=== PATIENT | female | born 1975 | race Caucasian/White ===

== ENCOUNTER → 2024-02-16 19:16 | Outpatient (REF) | payer OTHER, SELFPAY | LOC: WDC 19:16 | PROVIDERS: ATTENDING PHYSICIAN Family Medicine | DX: Z12.31 Encounter for screening mammogram for malignant neoplasm of breast (principal) | CPT/HCPCS: 77063; 77067 ==

== ENCOUNTER → 2024-02-23 08:47 | Outpatient (REF) | payer OTHER, SELFPAY | LOC: WDC 08:47 | PROVIDERS: ATTENDING PHYSICIAN Family Medicine | DX: R92.8 Other abnormal and inconclusive findings on diagnostic imaging of breast (principal) | CPT/HCPCS: 76642 ==

== ENCOUNTER → 2025-02-20 17:41 | Outpatient (REF) | payer OTHER, SELFPAY | LOC: WDC 17:41 | PROVIDERS: ATTENDING PHYSICIAN Family Medicine | DX: Z12.31 Encounter for screening mammogram for malignant neoplasm of breast (principal) | CPT/HCPCS: 77063; 77067 ==